=== PATIENT | male | born 1970 | race Caucasian/White ===

== ENCOUNTER 2019-06-28 14:30 | Emergency (ER) | payer OTHER, SELFPAY ==
[2019-06-28 14:42] VITALS: BP 144/81; PULSE 76; RESP 20; TEMP 36.8; O2SAT 100
--- NOTE | 2019-06-28 15:47 | ED.EAR ---
HPI - Ear Problem General Chief complaint: Ear Stated complaint: EARACHE Time Seen by Provider: 06/28/19 15:18 Source: patient Mode of arrival: ambulatory Limitations: no limitations History of Present Illness HPI Narrative: 48-year-old male presents for evaluation of right ear pain that is been present for 5 days and worsening. He reports decreased hearing, popping sensation. He states he had cold symptoms about 2 weeks ago. He has history of sinus surgery and gets frequent cerumen impaction to bilateral ears. He states he used to go to ENT for ear irrigations but it so hard to get an appointment. Denies any fever, ear drainage, sore throat, ear swelling Related Data Home Medications Medication Instructions Recorded Confirmed fluticasone furoate [Flonase INTRANASAL 06/28/19 Sensimist] fluticasone propion-salmeterol INHALATION 06/28/19 [Advair Diskus] Allergies Allergy/AdvReac Type Severity Reaction Status Date / Time amoxicillin Allergy Unknown Verified 10/19/17 10:49 cefuroxime Allergy Unknown Unknown Verified 10/19/17 10:48 clarithromycin Allergy Unknown Verified 10/19/17 10:49 Macrolide Antibiotics Allergy Unknown Verified 10/07/18 10:34 Penicillins Allergy Unknown HIVES Verified 10/07/18 10:34 Review of Systems Review of Systems: Narrative: CONSTITUTIONAL: Denies fever, chills, weight loss, or sweats. EYES: Denies visual changes, redness, or discharge. ENT: Denies rhinorrhea, congestion, sore throat. Reports right otalgia, popping and decreased hearing to right ear CARDIOVASCULAR: Denies chest pain, palpitations, or edema. RESPIRATORY: Denies cough or dyspnea. GASTROINTESTINAL: Denies abdominal pain, nausea, vomiting, or diarrhea. GENITOURINARY: Denies dysuria, hematuria, urinary frequency, malordous urine SKIN: Denies rash or itching. MUSCULOSKELETAL: Denies back pain, joint pain, myalgia, swelling NEUROLOGIC: Denies headache, numbness, or weakness. All systems reviewed & are unremarkable except as noted in HPI and below PMFSH Family History Family History (Updated 10/19/17 @ 10:51 by DOCTOR UNKNOWN) Mother Hypertension Father Patient's father is in good health Sibling Patient's brother is in good health Social History Social History Smoking status: Never smoker Second hand tobacco smoke exposure: No Alcohol intake: current Comments At the time of my signature, I agree with nursing past medical, surgical, social and family history. There is no relevant family history pertinent to the presenting complaint. Exam Narrative: Exam Narrative: GENERAL: No distress, well appearing, well nourished, alert and calm HEAD: Normocephalic, atraumatic. No sinus tenderness noted EYES: Pupils equal, round. Extraocular movements intact. Conjunctivae without redness or drainage. EARS: Bilateral tympanic membranes completely occluded by brown, dried cerumen. Once irrigated out, tympanic membranes intact, pearly reyes, normal landmarks and light reflex. No pain with tragal and pinna manipulation. NOSE: Nares patent. Nasal turbinates noninflamed. No nasal discharge MOUTH: Mucous membranes moist. No lesions. No cyanosis. Dentition grossly normal. THROAT: Oropharynx without signs erythema, exudates or lesions. Tonsils not enlarged. NECK: Supple. No lymphadenopathy. RESPIRATORY: Airway patent. Chest clear to auscultation bilaterally. Breath sounds equal bilaterally. No retractions. CARDIOVASCULAR: Regular rate and rhythm. No murmurs, rubs, gallops, or clicks. Capillary refill <2 seconds. SKIN: Color normal. Warm and dry. No rashes. Course Course Emergency Course: Prepared patient for bilateral cerumen impaction warm water irrigation. Vital Signs Vital signs: Vital Signs Temperature 98.2 F 06/28/19 14:42 Pulse Rate 76 06/28/19 14:42 Respiratory Rate 06/28/19 14:42 Blood Pressure 144/81 H 06/28/19 14:42 Pulse Oximetry 100 06/28/19 14:42 Temperature 98.2 F 06/28/19 14:4
== END 2019-06-28 15:58 | disposition home or self-care (01) ==
PROVIDERS: Emergency Provider Nurse Practitioner; PCP Internal Medicine
DX: H61.23 Impacted cerumen, bilateral (principal)
CPT/HCPCS: 69210; 99212; G0463

== ENCOUNTER 2021-10-30 07:40 | Outpatient (CLI) | payer OTHER, SELFPAY ==
--- NOTE | 2021-11-03 14:00 | WPDHOMESLEEP ---
Sleep Study - Home Unattended Date of Study: 10/30/21 Ordering Provider: Ayaka Hernandez DO Interpreting Provider: Delores Mendez MD Home Sleep Study Type: Watch PAT Height: 1.73 m Weight: 76.204 kg Body Mass Index: 25.5 Neck Circumference (inches): 14.5 [place]: 15 Reason for Sleep Study Poor quality sleep, frequent awakenings Sleep History Delio Londono is a 50 year old man with complaints of poor sleep, sleeping from 10:30 p.m. until 2 30 a.m. waking during this time with tossing and turning. He watches the clock at night. He does not awaken from sleep feeling short of breath. He rarely awakens at night with heartburn, belching or coughing. He occasionally snores. He rarely snores loudly enough that others complain about it. He frequently has trouble sleeping with a cold. Does not wake up gasping for breath at night. He does not have breathing problems at night observed by others. He rarely sweats excessively at night however he always feels hot at night. He does not notice his heart pounding or beating irregularly at night. He does not fall asleep during the day however he is very tired. He does not fall asleep involuntarily or while driving. He does not have loss of muscle tone with strong emotion. He does not have daytime difficulties due to excessive sleepiness. He does not feel paralyzed on waking or falling asleep nor does he have vivid dreamlike scenes upon awakening or falling asleep. He does not feel afraid to go to sleep. He does not have nightmares. He rarely remembers his dreams. He frequently has racing thoughts. He does not feel sad or depressed. He occasionally has anxiety and muscular tension. He does not notice part of his body jerking. He does not kick at night. He does not have crawling or aching feelings in his legs. He does not have any kind of leg pain at night. He does not have morning jaw pain or grind his teeth during sleep. He is not bothered by pain during the day. He does not awaken during the night due to pain. He occasionally wakes up feeling stiff in the morning with sore achy muscles. He frequently wakes up with pain in this neck and spine. He has memory problems. Normal bedtime is 10:30 p.m. taking 1/2 hour to fall asleep waking during the night and having difficulty returning to sleep. This awakening may occur at 2:30 a.m. in the morning. After this it is often hard for him to return to sleep. He wakes for the day by 7:15 a.m.. On weekends, he stays awake until midnight and wakes at 9:00 a.m. He does not take naps in the afternoon or evening. A short nap lasting 10 or 15 minutes may be refreshing. He is usually drowsy in the morning for an hour or longer. He feels better in the afternoon compared to other times of day. Habits: Never smoked tobacco. Caffeine 1 serving a day. Alcohol 1-2 per day. No recreational drugs. [facility] Past Medical History Medical History Allergies Asthma HTN (hypertension) Surgical History Surgical History H/O knee surgery Family History Family History Mother Hypertension Father Patient's father is in good health Sibling Patient's brother is in good health Social History Social History Smoking status: Never smoker Second hand tobacco smoke exposure: No Alcohol intake: current Substance use: never Substance use type: does not use Medications Home Medications Medication Instructions Recorded Confirmed Type fluticasone furoate 27.5 intranasal 06/28/19 08/27/21 History mcg/actuation nasal spray,suspension (Flonase Sensimist) albuterol sulfate 90 mcg/actuation 2 puff inhalation Q4-6H PRN 02/21/20 08/27/21 History aerosol inhaler (Ventolin HFA) multivitamin 1 tablet PO DAILY
[2021-11-03 14:22] VITALS: BMI 25.5
== END 2021-10-31 11:14 | disposition home or self-care (01) ==
LOC: ANHCSM 07:40
PROVIDERS: PCP Internal Medicine; Visit Provider Family Medicine
DX: G47.00 Insomnia, unspecified (principal); R06.83 Snoring
CPT/HCPCS: 95800

== ENCOUNTER 2021-11-03 16:37 | Emergency (ER) | payer OTHER, SELFPAY ==
[2021-11-03 16:42] VITALS: BP 140/98; PULSE 92; RESP 16; TEMP 36.7; O2SAT 100
--- NOTE | 2021-11-03 16:53 | ED.ABDPAIN ---
HPI - Abdominal Pain General Chief Complaint: Abdominal Pain Stated Complaint: pain on right side Time Seen by Provider: 11/03/21 16:45 Source: patient Mode of arrival: ambulatory Limitations: no limitations History of Present Illness HPI narrative: Mr. Londono is a 50-year-old male patient presenting to the clinic today with complaints of right mid and lower abdominal pain x5 to 7 days. He reports he noticed this pain after doing ab workouts. States that the pain is only there when he is bending or stepping on/off the gas pedal. He denies any nausea, vomiting, diarrhea, changes in bowel, changes in weight, fever, or chills. He denies any diarrhea or constipation. States that the pain is only when he is bending. States that he lifted something heavy and did not have any pain to his abdomen when he did that. States that the area is nontender to touch. States he is going to be traveling soon and wants to make sure that this is not a concern. Related Data Allergies Allergy/AdvReac Type Severity Reaction Status Date / Time amoxicillin Allergy Unknown Hives Verified 11/03/21 16:45 cefuroxime Allergy Unknown Unknown Verified 11/03/21 16:45 clarithromycin Allergy Unknown Unknown Verified 11/03/21 16:45 Macrolide Antibiotics Allergy Unknown Unknown Verified 11/03/21 16:45 Penicillins Allergy Unknown HIVES Verified 11/03/21 16:45 Review of Systems Review of Systems: Pertinent positives per HPI. Patient denies any fever, chills, rash, headache, visual changes, dizziness, cough, runny nose, sore throat, shortness of breath, chest pain, palpitations, nausea, vomiting, diarrhea, constipation, or any urinary issues. [facility] Past Medical History Medical History Allergies Asthma HTN (hypertension) Surgical History Surgical History H/O knee surgery Family History Family History Mother Hypertension Father Patient's father is in good health Sibling Patient's brother is in good health Social History Social History Smoking status: Never smoker Second hand tobacco smoke exposure: No Alcohol intake: current Substance use: never Substance use type: does not use Comments At the time of my signature, I reviewed and agree with the nursing past medical, surgical, social, and family history. There is no relevant family history pertinent to the patient complaint. Exam Narrative: General: Well-developed, well nourished, in no apparent distress. Head: Normocephalic, atraumatic. Cardio: Regular rate and rhythm, s1 and s2 normal, no murmur appreciated. Resp: Clear to auscultation bilaterally, no rhonchi, rales, wheezing or rubs. Abdomen: Soft, pliable, bowel sounds present in all quadrants, non-tender to palpation, no organomegly, no CVAT tenderness. Very mild bulging felt with bearing down over the right lower mid abdomen, area is pliable/reducible. Course Course Emergency Course: Portions of this record may have been created with voice recognition software. Level of Care: Express Care Visit Vital Signs Vital signs: Vital Signs Temperature 36.7 C 11/03/21 16:42 Pulse Rate 92 11/03/21 16:42 Respiratory Rate 16 11/03/21 16:42 Blood Pressure 140/98 H 11/03/21 16:42 Pulse Oximetry 100 11/03/21 16:42 Oxygen Delivery Room Air 11/03/21 16:42 Temperature 36.7 C 11/03/21 16:42 Pulse Rate 92 11/03/21 16:42 Respiratory Rate 16 11/03/21 16:42 Blood Pressure 140/98 H 11/03/21 16:42 Pulse Oximetry 100 11/03/21 16:42 Oxygen Delivery Room Air 11/03/21 16:42 Vital signs reviewed MDM - Abdominal Pain MDM Narrative Medical decision making narrative: At the time of visit patient is resting comfortably on the exam table. He has a negative McBurney
== END 2021-11-03 16:58 | disposition home or self-care (01) ==
PROVIDERS: Emergency Provider Nurse Practitioner Family; PCP Internal Medicine
DX: R10.31 Right lower quadrant pain (principal); J45.909 Unspecified asthma, uncomplicated; I10 Essential (primary) hypertension
CPT/HCPCS: 81003; 99212; G0463

== ENCOUNTER 2021-11-06 09:53 | Outpatient (CLI) | payer OTHER, SELFPAY ==
--- NOTE | ~2021-11-06 | US_ITS ---
EXAMINATION: US abdomen complete DATE: 11/06/2021 10:32 INDICATION: Right lower quadrant abdominal pain. TECHNIQUE: Multiple grayscale and Doppler ultrasound images of the abdomen were obtained. COMPARISON: Ultrasound 10/06/2018 FINDINGS: The visualized portions of the head and body of the pancreas are normal. The liver is kevin l without focal lesion. No liver surface nodularity. The gallbladder is normal in size. No gallstones or gallbladder wall thickening. There is no sonographic Millard sign. The common duct is normal and m easures 4 mm. There is normal flow in main portal vein. The aorta is normal in caliber. The inferior vena cava is normal. The spleen is normal in size. The kidneys are normal in size. IMPRESSION: 1. Normal complete abdomen ultrasound. Reviewed, dictated and finalized at location A.
== END 2021-11-06 09:54 | disposition home or self-care (01) ==
PROVIDERS: PCP Internal Medicine; Visit Provider Clinical Nurse Specialist
DX: R10.31 Right lower quadrant pain (principal)
CPT/HCPCS: 76700

== ENCOUNTER 2022-02-04 08:02 | Outpatient (NON) | payer OTHER, SELFPAY | END 2022-02-04 08:03 | disposition home or self-care (01) | LOC: ANHLAB 02-05 08:07 | PROVIDERS: PCP Internal Medicine; Visit Provider Internal Medicine Gastroenterology | DX: K63.5 Polyp of colon (principal) | CPT/HCPCS: 88305 ==

== ENCOUNTER 2022-02-04 10:47 | Day surgery (SDC) | payer OTHER, SELFPAY ==
[2021-12-02 13:19] VITALS: BMI 25.5
[2022-01-21 10:35] VITALS: BMI 23.8
[2022-02-04 11:05] VITALS: BP 135/99; PULSE 81; RESP 20; TEMP 37.1; O2SAT 100
[2022-02-04 11:09] VITALS: BMI 24.5
[2022-02-04] MEDS: LACTATED RINGERS 1,000 ML 150 ML IV CONT (11:15)
--- NOTE | 2022-02-04 12:14 | WPDANESEPPF ---
Anes - Initial Pre Proc Eval Procedure: Operation Date: 02/04/22 12:30 Proposed Procedures p Screening Colonoscopy - Dieter Ford MD Date/Time: 02/04/22 12:14 Surgeon: Dieter Ford MD Pre Op Diagnosis: Neoplasm Screening Patient Data Age: 51 Gender: M Height: 1.75 m Weight: 75.3 kg Allergies Allergy/AdvReac Type Severity Reaction Status Date / Time amoxicillin Allergy Unknown Hives Verified 02/04/22 11:07 cefuroxime Allergy Unknown Unknown Verified 02/04/22 11:07 clarithromycin Allergy Unknown Unknown Verified 02/04/22 11:07 Macrolide Antibiotics Allergy Unknown Unknown Verified 02/04/22 11:07 Penicillins Allergy Unknown HIVES Verified 02/04/22 11:07 Home Medications Medication Instructions Recorded Confirmed Type meloxicam 7.5 mg tablet 7.5 mg PO DAILY 02/04/22 02/04/22 History quinapril 20 mg tablet (Accupril) 20 mg PO DAILY 02/04/22 02/04/22 History Patient hx anesthesia problems: none Family hx anesthesia problems: none Results Review: All pre-operative results and documents have been reviewed as part of the pre-operative evaluation. [facility], [facility] Past Medical History Medical History Allergies Asthma HTN (hypertension) Surgical History Surgical History (Updated 02/04/22 @ 12:14 by Dean Najera MD) H/O knee surgery H/O sinus surgery Family History Family History Mother Hypertension Father Patient's father is in good health Sibling Patient's brother is in good health Social History Social History Smoking status: Never smoker Second hand tobacco smoke exposure: No Alcohol intake: current Drinks per week: 5 Substance use: never Substance use type: does not use Living arrangements: with family Spiritual care concerns: No Anes - Eval Final PreProcedure Day of Procedure 02/04/22 12:14 Patient weight: normal Heart: regular rate and rhythm Lungs: clear to auscultation Airway: Mallampati scale class 1 Last oral intake: >/= 8 hours ASA classification: II Emergent: no Anesthetic plan: proceed Anesthesia type and monitoring: general GIVS and standard monitoring Results Review: All pre-operative results and documents have been reviewed as part of the pre-operative evaluation. Informed Consent: The patient's anesthetic plan and its attendant risks and benefits were discussed with the patient/family/POA. Questions were solicited and answers provided to the satisfaction of the patient/family/POA.
--- NOTE | 2022-02-04 12:33 | PM.HPGS ---
History of Present Illness History of Present Illness Consent: Risks, benefits, and alternatives have been discussed and questions answered. Patient agrees to proceed with procedure. Chief complaint: Neoplasm Screening Narrative: Delio Londono is a 51 year old male here for first screening colonoscopy Review of Systems Constitutional: Constitutional: Denies headache(s) and Denies weakness Eyes: Eyes: Denies blurry vision ENT: Reports Normal hearing present, Denies headache(s) and Denies neck pain Cardiovascular: Cardiovascular: Denies chest pain and Denies dyspnea Respiratory: Respiratory: Denies dyspnea Gastrointestinal: Gastrointestinal: Reports no additional gastrointestinal complaints Genitourinary: Genitourinary: Denies dysuria Musculoskeletal: Musculoskeletal: Denies neck pain Integumentary/Breasts: Skin/Breast: Denies dry skin Neurologic: Reports Normal hearing present, Denies headache(s) and Denies weakness Psychiatric: Psychiatric: Denies anxiety Endocrine: Endocrine: Denies change in body appearance Hematologic/Lymphatic: Hematologic/Lymphatic: Denies easy bleeding Allergic/Immunologic: Allergic/Immunologic: Denies urticaria PMFSH Past Medical History Medical History Allergies Asthma HTN (hypertension) Surgical History Surgical History (Updated 02/04/22 @ 12:14 by Dean Najera MD) H/O knee surgery H/O sinus surgery Family History Family History Mother Hypertension Father Patient's father is in good health Sibling Patient's brother is in good health Social History Social History Smoking status: Never smoker Second hand tobacco smoke exposure: No Alcohol intake: current Drinks per week: 5 Substance use: never Substance use type: does not use Living arrangements: with family Spiritual care concerns: No Meds Home Medications and Allergies Home Medications Medication Instructions Recorded Confirmed Type meloxicam 7.5 mg tablet 7.5 mg PO DAILY 02/04/22 02/04/22 History quinapril 20 mg tablet (Accupril) 20 mg PO DAILY 02/04/22 02/04/22 History Allergies Allergy/AdvReac Type Severity Reaction Status Date / Time amoxicillin Allergy Unknown Hives Verified 02/04/22 11:07 cefuroxime Allergy Unknown Unknown Verified 02/04/22 11:07 clarithromycin Allergy Unknown Unknown Verified 02/04/22 11:07 Macrolide Antibiotics Allergy Unknown Unknown Verified 02/04/22 11:07 Penicillins Allergy Unknown HIVES Verified 02/04/22 11:07 Vital Signs Vital Signs - 24 hr 02/04/22 11:05 Temperature 98.7 F Pulse Rate 81 Respiratory Rate 20 Blood Pressure 135/99 H Pulse Oximetry 100 Oxygen Delivery Room Air Exam Const: General: comfortable and no acute distress HENMT: General nose exam: Normal nares present Eyes: General: appearance normal, both eyes and all related structures Neck: Neck: no JVD Resp: Auscultation: clear to auscultation bilaterally Cardio: Rate: regular rate Rhythm: regular rhythm GI: Inspection: non-distended GI Palp: Yes Soft to palpation Skin: General skin exam: normal color Neuro: General: gait normal Speech: normal speech Extrem: General: normal to inspection Psych: Mental Status: mental status grossly normal Assessment and Plan Assessment and plan (1) Colon cancer screening: Code(s): Z12.11 - Encounter for screening for malignant neoplasm of colon Status: Acute Assessment and Plan: colonoscopy
[2022-02-04 12:53] VITALS: BP 125/93; PULSE 75; RESP 18; O2SAT 100
[2022-02-04 13:03] VITALS: BP 122/86; PULSE 76; RESP 18; O2SAT 100
--- NOTE | 2022-02-04 13:03 | WPDANESPN ---
Anes - Prog Note Post-Op Date/Time: 02/04/22 13:03 Cardiovascular status: normal Respiratory status: normal Airway patency: baseline Mental status: baseline Post-Op hydration status: normal Vital Signs: Last Vital Signs Temp 37.1 C 02/04/22 11:05 Pulse 75 02/04/22 12:53 Resp 18 02/04/22 12:53 BP 125/93 H 02/04/22 12:53 Pulse Ox 100 02/04/22 12:53 O2 Del Method Room Air 02/04/22 12:53 Pain Score (VAS): 0/10 I/O: Intake & Output 02/03/22 02/04/22 02/04/22 23:59 07:59 15:59 Intake Total 300 Balance 300 Patient Feedback: Patient satisfied with anesthetic care.
[2022-02-04 13:13] VITALS: BP 125/89; PULSE 63; RESP 18; O2SAT 100
== END 2022-02-04 13:25 | disposition home or self-care (01) ==
PROVIDERS: PCP Internal Medicine; Visit Provider Internal Medicine Gastroenterology
PROC: 0DJD8ZZ Inspection of Lower Intestinal Tract, Via Natural or Artificial Opening Endoscopic (ICD-10-PCS; CPT 45378; principal; 2022-02-04 12:30)
DX: Z12.11 Encounter for screening for malignant neoplasm of colon (principal)
CPT/HCPCS: 45380

== ENCOUNTER 2023-01-01 08:00 | Outpatient (RCR) | payer OTHER, SELFPAY ==
--- NOTE | 2022-11-30 12:24 | OPREHPOC ---
Outpatient Therapy Plan of Care This is a Multidisciplinary Plan of Care that may contain components documented by all disciplines (PT, OT, and ST.) PT Problem 1 PT Problem #1 Knowledge Deficit PT Goal 1 Goal Pt to be IND with issued HEP Target Visit 4 PT Problem 2 PT Problem #2 Pain PT Goal 1 Goal Pt to report arm pain no greater than 3/10 in the last week Target Visit 4 PT Goal 2 Goal Pt to report 75% improvement in overall symptoms Target Visit 4 PT Problem 3 PT Problem #3 Impaired Strength PT Goal 1 Goal Pt to report no increase in pain with resisted 10lb bicep curls.
--- NOTE | 2022-11-30 12:24 | PTOPEVAL1 ---
Assessment and note entered by Raul Martinez, PT, DPT Evaluation Information Assessment Status Evaluation Diagnosis R arm pain Onset ~4 months Subjective Information Pt states his R arm, in the biceps region hurts, specially when he is doing bicep curls. Pt reports a 4 month history without a known SRIDEVI. He states sometimes his arm is tender to palpation. Reported Pain Level Pain Score 0: Self Report Assessment PT Clinical Summary Delio presents to therapy today with a diagnosis of other enthesopathies. Today he reports tenderness to palpation at the distal insertion point of his R biceps and brachialis as well as gritty soft tissue with palpation. He has mild tightness of his biceps muscle. Skilled physical therapy services are indicated to address soft tissue restrictions, to manage pain, and to return to PLOF without pain. Plan of Care Interventions Electrical Stimulation,Hot Pack/Cold Pack,Manual Therapy,Neuro Re-education,Patient/Caregiver Educati,Therapeutic Activities,Therapeutic Exercise,Ultrasound PT Services Indicated Yes Treatment Frequency and 1x/wk for 4 wks Duration These treatments will address the objective and functional deficits as defined above. The patient will be advanced safely and appropriately in order for the patient to progress towards his/her prior level of function. Additional exercises will be introduced and as well as a comprehensive home exercise program upon discharge, if needed, ?to ensure carryover of functional gains achieved in the clinic. This treatment plan has been reviewed and agreement upon by the patient.
--- NOTE | 2023-01-01 08:57 | PTOPDC ---
Assessment and note entered by Raul Martinez, PT, DPT Evaluation Information Assessment Status Discharge Diagnosis R arm pain Onset ~4 months Subjective Information Pt states overall things are going well but he doesn't think anything is helping. He states her still gets strong arm and shoulder pains. Pt reports 10% improvement in overall symptoms. He continues to report that unless he is lifting something heavy, his day to day activities do not cause him any pain, just working out. Reported Pain Level Pain Score 0: Self Report Assessment PT Clinical Summary Devaughn presents to therapy today for his progress report following 4 visits to treat her R elbow pain. Today he reports very minimal improvement in his arm pain despite performing his exercises and decreasing his activity at home. Pt states he would like to continue his exercises IND and follow up with his PCP about getting additional imaging. Plan of Care PT Services Indicated No
== END 2023-01-01 10:18 | disposition home or self-care (01) ==
LOC: ANHGOSHPT 08:00
PROVIDERS: PCP Internal Medicine; Visit Provider Clinical Nurse Specialist
DX: M77.8 Other enthesopathies, not elsewhere classified (principal)
CPT/HCPCS: 97035; 97110; 97112; 97140; 97161; 97530

== ENCOUNTER → 2023-01-07 10:05 | Outpatient (CLI) | payer OTHER, SELFPAY ==
--- NOTE | ~2023-01-07 | XR_ITS ---
EXAMINATION: XR elbow RT min 3V INDICATION: Right elbow pain TECHNIQUE: Four views of the right elbow are obtained. COMPARISON: 06/01/2014 FINDINGS: No fracture, dislocation, or subluxation. The bones, soft tissues, and joint spaces are nor mal. IMPRESSION: 1. No acute osseous abnormality. Reviewed, dictated and finalized at location A.
--- NOTE | ~2023-01-07 | XR_ITS ---
EXAMINATION: XR shoulder RT min 2V INDICATION: Right shoulder pain TECHNIQUE: Four views of the right shoulder are submitted. COMPARISON: None FINDINGS: Normal alignment. No acute fracture. There appears to be an old right distal clavicle fract ure. Glenohumeral and acromioclavicular joint spaces are normal. Soft tissues are unremarkable. IMPRESSION: 1. No acute osseous abnormality. Reviewed, dictated and finalized at location A.
== END ==
PROVIDERS: PCP Internal Medicine; Visit Provider Clinical Nurse Specialist
DX: M25.521 Pain in right elbow (principal); M25.511 Pain in right shoulder
CPT/HCPCS: 73030; 73080

== ENCOUNTER → 2023-02-17 07:00 | Outpatient (CLI) | payer OTHER, SELFPAY ==
--- NOTE | ~2023-02-17 | MR_ITS ---
MRI of the right elbow CLINICAL HISTORY: Bicipital tendinitis TECHNIQUE: Proton-density and proton-density fat-sat images were acquired in the axial, coronal, and sagittal planes. FINDINGS: Ulnar collateral ligaments is intact. Radial collateral ligament and the lateral ulnar sundeep ateral ligament are intact. Common flexor and common extensor tendon origins are intact, without evid ence for medial or lateral epicondylitis. Bone marrow signals are essentially unremarkable. Probable minimal chondromalacia of the elbow joint. No significant joint effusion evident. There is increased signal in the very distal biceps tendon near its radial insertion, compatible with tendinosis. Questionable mild fraying, but no high-grade partial or full-thickness tear is clearly e vident. Brachialis and triceps tendons are intact. No soft tissue mass or fluid collection evident. V isualized muscle bellies are unremarkable. IMPRESSION: Distal biceps tendinosis, with questionable mild fraying. No high-grade partial or full-thickness tea r. Minimal chondromalacia of the elbow joint. Reviewed, dictated and finalized at location M. IMPRESSION: Distal biceps tendinosis, with questionable mild fraying. No high-grade partial or full-thickness tear. Minimal chondromalacia of the elbow joint.
== END ==
PROVIDERS: PCP Orthopaedic Surgery; Visit Provider Orthopaedic Surgery
DX: M75.21 Bicipital tendinitis, right shoulder (principal)
CPT/HCPCS: 73221

== ENCOUNTER 2024-03-28 08:18 | Outpatient (CLI) | payer OTHER, SELFPAY ==
--- NOTE | ~2024-03-28 | MR_ITS ---
EXAMINATION: MR knee LT wo con DATE: 03/28/2024 09:02 INDICATION: Memory osteoarthritis of the left knee TECHNIQUE: Magnetic resonance imaging (MRI) of the left knee was performed without intravenous contra st. Sequences included coronal PD-weighted FSE, coronal PD-weighted FS FSE, sagittal T2-weighted FSE , sagittal PD-weighted FS FSE and axial PD weighted fat saturated FSE. COMPARISON: None. FINDINGS: Medial compartment: Complex tear of the body and posterior horn of the medial meniscus. 6 mm para meniscal cyst at the pe riphery of the junction of the body and posterior horn of the medial meniscus. There is deep chondral ulceration with underlying cortical irregularity and small central subchondral osteophytes extending across the central aspect of the weightbearing medial femoral condyle. Shallow chondral ulceration a long the more anterior weightbearing medial femoral condyle and at the medial tibial plateau. Small f ocus of subarticular edema-like signal change at the medial aspect of the medial tibial plateau. Smal l marginal osteophytes are present. Lateral compartment: Lateral meniscus is normal. Articular cartilage is normal. Patellofemoral compartment: Partial-thickness chondral fissuring along the medial aspect and medial patellar facet. Trochlear car tilage is relatively preserved. Ligaments and tendons: Anterior and posterior cruciate ligaments are normal. The medial collateral ligament and fibular sundeep ateral ligament complex are normal. The extensor mechanism is normal. The visualized medial and later al hamstring tendons as well as the iliotibial band are normal. Fluid: Small left knee joint effusion. No loose osteochondral bodies identified. Moderate-sized Davis's cyst extending 7 cm craniocaudally and measuring 3.0 x 1.2 cm in maximal transaxial dimensions. Osseous/other: Bone alignment is normal. No fracture or pathologic marrow replacing process. IMPRESSION: 1. Complex medial meniscal tear. 2. 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 Minimal patellofemor al osteoarthritis with small region of moderate grade chondromalacia along the medial margin of the m edial patellar facet. 3. Small left knee joint effusion and moderate-sized Davis's cyst. Reviewed, dictated and finalized at location B. E WORKER IMPRESSION: 1. Complex medial meniscal tear. 2. 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 Minimal patellofemoral osteoarthritis with small region of moderate grade cho ndromalacia along the medial margin of the medial patellar facet. 3. Small left knee joint effusion and moderate-sized Davis's cyst.
== END 2024-03-28 08:19 | disposition home or self-care (01) ==
LOC: GOSHIMG 08:20
PROVIDERS: PCP Internal Medicine
DX: S83.242A Other tear of medial meniscus, current injury, left knee, initial encounter (principal); X58.XXXA Exposure to other specified factors, initial encounter; M94.262 Chondromalacia, left knee; M25.462 Effusion, left knee; M71.22 Synovial cyst of popliteal space [Baker], left knee; M17.12 Unilateral primary osteoarthritis, left knee
CPT/HCPCS: 73721

== ENCOUNTER 2025-01-01 08:31 | Outpatient (CLI) | payer OTHER, SELFPAY ==
--- NOTE | ~2025-01-01 | XR_ITS ---
EXAM/ PROCEDURE: XR lumbar spine 6V w bending - 01/01/2025 8:42 CDT HISTORY: 54 years old Male with M54.50 - Low back pain, unspecified, back pain 5 years COMPARISON: None available TECHNIQUE: Three view(s) FINDINGS/ IMPRESSION: There are no fractures or dislocations.Intervertebral disc spaces are within normal limits. Reviewed, dictated and finalized at location A.
== END 2025-01-01 08:32 | disposition home or self-care (01) ==
PROVIDERS: PCP Internal Medicine; Visit Provider Internal Medicine
DX: M54.50 Low back pain, unspecified (principal)
CPT/HCPCS: 72114

== ENCOUNTER 2025-05-11 12:49 | Outpatient (CLI) | payer OTHER, SELFPAY ==
--- NOTE | ~2025-05-11 | MR_ITS ---
EXAMINATION: MR lumbar spine wo con DATE: 05/11/2025 13:12 INDICATION: Low back pain. TECHNIQUE: Magnetic resonance imaging (MRI) of the lumbar spine was performed without intravenous contrast. COMPARISON: Lumbar spine MRI 03/24/2016 FINDINGS: Alignment is normal. Vertebral body heights are normal. There is mildly decreased disc height from L2-L3 through L4-L5. The distal spinal cord signal intensity is normal. The conus medullaris is at L1. The following disc levels are specifically discussed: L1-L2: The disc does not extend beyond the endplate margin. There is mild bilateral facet joint osteoarthritis. There is no neural foraminal stenosis. There is no central canal stenosis. L2-L3: The disc is bulging. There is moderate bilateral facet joint osteoarthritis. There is mild bilateral neural foraminal stenosis. There is mild central canal stenosis. L3-L4: The disc is bulging. There is severe bilateral facet joint osteoarthritis. There is mild bilateral neural foraminal stenosis. There is mild central canal stenosis. L4-L5: The disc is bulging with superimposed central extrusion. There is mild right and moderate left facet joint osteoarthritis. There is mild bilateral neural foraminal stenosis. There is mild central canal stenosis. L5-S1: The disc is bulging. There is severe bilateral facet joint osteoarthritis. There is mild bilateral neural foraminal stenosis. There is mild central canal stenosis. IMPRESSION: 1. Mild lumbar spondylosis, mildly worsened from 03/24/2016. Reviewed, dictated and finalized at location E. DIR
== END 2025-05-11 12:50 | disposition home or self-care (01) ==
PROVIDERS: PCP Internal Medicine; Visit Provider Clinical Nurse Specialist
DX: M54.50 Low back pain, unspecified (principal); G89.29 Other chronic pain
CPT/HCPCS: 72148